=== PATIENT | male | born 1945 | race Caucasian/White ===

== ENCOUNTER 2017-03-09 15:47 | Inpatient (IN) | payer OTHER ==
[~2017-03-09] VITALS: Ht 160 cm; Wt 77.1 kg
[~2017-03-09 15:47] MED LIST: ASPIRIN EC81 MG; CRESTOR10 MG; ENALAPRIL MALEA20 MG; GLIMEPIRIDE2 MG; HEMATRON P.O.1 UDTAB; PHENYTOIN SODI100 MG; PREVACID30 MG
== END 2017-03-17 15:28 | disposition home or self-care (01) | DRG 203 ==
LOC: ER 15:47 → MEDJ 03-10 10:16 → SEC-K 03-10 10:16 → MEDJ 03-10 11:25
PROC: 3E0F7GC Introduction of Other Therapeutic Substance into Respiratory Tract, Via Natural or Artificial Opening (ICD-10-PCS; principal; 2017-03-10)
PROC: B246ZZZ Ultrasonography of Right and Left Heart (ICD-10-PCS; 2017-03-10)
PROC: 4A033R1 Measurement of Arterial Saturation, Peripheral, Percutaneous Approach (ICD-10-PCS; 2017-03-11)
PROC: BB24Y0Z Computerized Tomography (CT Scan) of Bilateral Lungs using Other Contrast, Unenhanced and Enhanced (ICD-10-PCS; 2017-03-11)
DX: J45.41 Moderate persistent asthma with (acute) exacerbation (principal); R09.02 Hypoxemia; I10 Essential (primary) hypertension; E11.9 Type 2 diabetes mellitus without complications

== ENCOUNTER 2017-07-31 09:25 | Outpatient (CLI) | payer OTHER | END 2017-07-31 09:27 | disposition home or self-care (01) | LOC: LAB 09:25 | DX: Z12.5 Encounter for screening for malignant neoplasm of prostate (principal); Z12.11 Encounter for screening for malignant neoplasm of colon; Z13.220 Encounter for screening for lipoid disorders; G47.8 Other sleep disorders; I10 Essential (primary) hypertension; E11.9 Type 2 diabetes mellitus without complications; H57.8 Other specified disorders of eye and adnexa; R05 Cough ==

== ENCOUNTER 2017-08-05 08:28 | Outpatient (CLI) | payer OTHER | END 2017-08-05 08:35 | disposition home or self-care (01) | LOC: LAB 08:28 | DX: G47.9 Sleep disorder, unspecified (principal); I10 Essential (primary) hypertension; H57.9 Unspecified disorder of eye and adnexa; R05 Cough; Z13.220 Encounter for screening for lipoid disorders; Z12.5 Encounter for screening for malignant neoplasm of prostate; Z12.11 Encounter for screening for malignant neoplasm of colon; E11.9 Type 2 diabetes mellitus without complications ==

== ENCOUNTER → 2017-08-19 | Outpatient (CLI) | payer OTHER | END | disposition home or self-care (01) | LOC: TOM 10:42 | DX: R97.20 Elevated prostate specific antigen [PSA] (principal); Z12.11 Encounter for screening for malignant neoplasm of colon; J84.10 Pulmonary fibrosis, unspecified ==

== ENCOUNTER 2022-02-07 12:11 | Emergency (ER) | payer OTHER ==
[~2022-02-07] VITALS: Ht 167.6 cm; Wt 70.3 kg
== END 2022-02-07 14:27 | disposition home or self-care (01) ==
LOC: ER 12:11
DX: J22 Unspecified acute lower respiratory infection (principal)

== ENCOUNTER 2024-08-09 16:35 | Inpatient (IN) | payer OTHER ==
[~2024-08-09] VITALS: Ht 165.1 cm; Wt 70.3 kg
[2024-08-09] MEDS ORDERED: FUROsemide 40 MG/4 ML VIAL IV ONE (17:15)
[2024-08-09] MEDS ORDERED: NITROGLYCERIN 250 ML IV SCH (17:15)
[2024-08-09] MEDS ORDERED: NITROGLYCERIN IN 5 % DEXTROSE 50 MG/250 ML BOTTLE IV ONE (17:18)
[2024-08-09] MEDS ORDERED: FUROsemide 40 MG/4 ML VIAL ONE (17:18)
[2024-08-09 17:21] LABS: BASO % 0.8 % (0.1-1.2); EOS # 0.17 (0.04-0.54); EOS % 2.6 % (0.7-7.0); LYMPH # 1.23 (1.18-3.74); LYMPH % 18.6 % (19.3-53.1); MEAN CORPUSCULAR HEMOGLOBIN 27.5 pg (25.6-32.2); MONO # 0.51 (0.24-0.82); MONO % 7.7 % (4.7-12.5); NEUT # 4.63 (1.56-6.13); NEUT % 70.1 % (34.0-71.1); PLATELET COUNT 246 K/uL (163-369); RED BLOOD COUNT 2.51 M/uL (4.63-6.08); RED CELL DISTRIBUTION WIDTH 15.6 % (11.6-14.4)
[2024-08-09 17:24] LABS: HEMOGLOBIN 6.9 g/dL (13.7-17.5)
[2024-08-09 17:44] LABS: COVID-19 AG NEGATIVE (NEGATIVE)
[2024-08-09 17:45] LABS: INR 1.71; PARTIAL THROMBOPLASTIN TIME 32.6 SECONDS (22.0-34.0)
[2024-08-09] MEDS ORDERED: FUROsemide 20 MG/2 ML VIAL IV SCH ×2 (17:45→21:00)
[2024-08-09 17:57] LABS: PROTHROMBIN TIME 17.9 SECONDS (9.0-11.5)
[2024-08-09 18:11] LABS: POTASSIUM 3.99 mEq/L (3.5-5.1)
[2024-08-09 18:13] LABS: ABG PH 7.481 (7.35-7.45); ABG PO2 108.6 mmHg (80-100); ABG pCO2 29.3 mmHg (35-45); BASE EXCESS -0.9 mmol/l; BICARBONATE 21.4 mmol/l (23-25); SaO2 98.6 %; Tco2 22.2 mmol/l
[2024-08-09 18:23] LABS: allen test SATISFACTORY; mode ROOM AIR; o2 21 %; puncture site RADIAL RIGHT
[2024-08-09 18:27] LABS: ALBUMIN 3.1 gm/dL (3.4-5.0); BILIRUBIN TOTAL 0.37 mg/dL (0.3-1.2); CALCIUM 8.5 mg/dL (8.5-10.1); CREATININE SERUM 0.95 mg/dL (0.70-1.30); GFR 76.48; GLOBULINA 3.6 G/DL (2.4-3.5); TOTAL PROTEIN 6.7 gm/dL (6.4-8.2)
[2024-08-09] MEDS ORDERED: IPRATROPIUM BROMIDE 0.5 MG/2.5 ML AMPUL.NEB IH SCH (18:48)
[2024-08-09] MEDS ORDERED: PANTOPRAZOLE SODIUM 40 MG/VIAL VIAL IV SCH (18:50)
[2024-08-09] MEDS ORDERED: DEXTROSE 50 % IN WATER 0.5 G/ML DISP.SYRIN IV PRN (19:00)
[2024-08-09] MEDS ORDERED: INSULIN LISPRO 1,000 UNIT/10 ML UNITS SUBCUTANEO PRN (19:00)
[2024-08-09] MEDS ORDERED: ACETAMINOPHEN 500 MG GEL..CAP PO PRN (19:00)
[2024-08-09 20:18] VITALS: BP 143/71; O2SAT 100
[2024-08-09 20:39] LABS: PH,URINE 5.5 (5.0-8.0); URINE APPEARANCE Clear; URINE BILIRRUBIN Negative (NEGATIVE); URINE BLOOD Negative; URINE COLOR Yellow; URINE GLUCOSE Negative (NEGATIVE); URINE KETONE Negative (NEGATIVE); URINE LEUKOCYTE Negative; URINE NITRATE Negative; URINE PROTEIN Negative (NEGATIVE); URINE UROBILINOGEN 0.2 E.U./dl
[2024-08-09 20:42] LABS: URINE BACTERIA 36.7 uL (0.0-1933); URINE EPITHELIAL CELLS 5.2 uL (0.0-38.8); URINE RBC 40.6 uL (0.0-20.8); URINE WBC 15.8 uL (0.0-23.2)
[2024-08-09 21:00] LABS: URINE CAST 0.29 uL (0.0-1.40); URINE YEAST FEW /hpf
[2024-08-09 22:06] LABS: FERRITIN 16.8 NG/ML (26-388)
[2024-08-09 22:24] VITALS: BP 179/95; O2SAT 100
[2024-08-09 23:48] VITALS: BP 164/92; O2SAT 100
[2024-08-10] VITALS (22 sets, daily range): BP systolic 106–154; BP diastolic 60–94; O2SAT 96–100
[2024-08-10] MEDS ORDERED: ROSUVASTATIN CALCIUM 10 MG TABLET PO SCH (09:00)
[2024-08-10] MEDS ORDERED: PHENYTOIN SODIUM EXTENDED 100 MG CAPSULE PO SCH (09:00)
[2024-08-11] VITALS (23 sets, daily range): BP systolic 113–160; BP diastolic 62–93; O2SAT 99–100
[2024-08-11] MEDS ORDERED: NITROGLYCERIN IN 5 % DEXTROSE 250 ML IV SCH (09:00)
[2024-08-11 17:20] LABS: BASO % 0.5 % (0.1-1.2); EOS # 0.28 (0.04-0.54); EOS % 3.4 % (0.7-7.0); HEMATOCRIT 35.3 % (40.1-51.0); HEMOGLOBIN 11.9 g/dL (13.7-17.5); LYMPH # 1.44 (1.18-3.74); LYMPH % 17.6 % (19.3-53.1); MEAN CORPUSCULAR HEMOGLOBIN 27.8 pg (25.6-32.2); MONO # 0.62 (0.24-0.82); MONO % 7.6 % (4.7-12.5); NEUT # 5.79 (1.56-6.13); NEUT % 70.7 % (34.0-71.1); PLATELET COUNT 241 K/uL (163-369); RED BLOOD COUNT 4.28 M/uL (4.63-6.08); RED CELL DISTRIBUTION WIDTH 15.9 % (11.6-14.4)
[2024-08-11 18:11] LABS: CHOL HDL RATIO 2.1 (0-5.0); TSH 1.78 uIU/mL (0.358-3.74)
[2024-08-12] VITALS (15 sets, daily range): BP systolic 121–151; BP diastolic 62–95; O2SAT 96–100
[2024-08-12 08:09] LABS: CALCIUM 8.3 mg/dL (8.5-10.1); CREATININE SERUM 0.99 mg/dL (0.70-1.30); GFR 72.92; PHOSPHOROUS 4.4 mg/dL (2.5-4.9); POTASSIUM 3.66 mEq/L (3.5-5.1)
[2024-08-12] MEDS ORDERED: AMLODIPINE BESYLATE 5 MG TABLET PO SCH (09:00)
[2024-08-12] MEDS ORDERED: LACTULOSE 20 G/30 ML BLIST.PACK PO SCH (12:00)
[2024-08-12] MEDS ORDERED: FUROsemide 20 MG TABLET PO NR (12:30)
[2024-08-12] MEDS ORDERED: PANTOPRAZOLE SODIUM 40 MG TABLET.DR PO SCH (13:26)
[2024-08-13] VITALS (9 sets, daily range): BP systolic 162–181; BP diastolic 79–93; O2SAT 90–99
[2024-08-13] MEDS ORDERED: FUROsemide 20 MG TABLET PO SCH (09:00)
== END 2024-08-13 20:43 | disposition home or self-care (01) | DRG 291 ==
LOC: ER 16:35 → ICU-2 19:22 → ICU 19:22 → MEDJ 08-12 22:57
PROVIDERS: General Practice; Internal Medicine Hematology & Oncology; ADMIT Specialist/Technologist, Other Nephrology; ATTEND Specialist/Technologist, Other Nephrology
PROC: BW24ZZZ Computerized Tomography (CT Scan) of Chest and Abdomen (ICD-10-PCS; principal; 2024-08-09)
PROC: B246ZZZ Ultrasonography of Right and Left Heart (ICD-10-PCS; 2024-08-09)
PROC: 3E0F7GC Introduction of Other Therapeutic Substance into Respiratory Tract, Via Natural or Artificial Opening (ICD-10-PCS; 2024-08-10)
PROC: 30233N1 Transfusion of Nonautologous Red Blood Cells into Peripheral Vein, Percutaneous Approach (ICD-10-PCS; 2024-08-10)
PROC: BW21ZZZ Computerized Tomography (CT Scan) of Abdomen and Pelvis (ICD-10-PCS; 2024-08-11)
PROC: 4A12X4Z Monitoring of Cardiac Electrical Activity, External Approach (ICD-10-PCS; 2024-08-13)
DX: I11.0 Hypertensive heart disease with heart failure (principal); I50.21 Acute systolic (congestive) heart failure; J90 Pleural effusion, not elsewhere classified; D64.9 Anemia, unspecified; E11.9 Type 2 diabetes mellitus without complications; Z79.4 Long term (current) use of insulin; D50.9 Iron deficiency anemia, unspecified; R09.02 Hypoxemia; Z79.01 Long term (current) use of anticoagulants; J22 Unspecified acute lower respiratory infection

== ENCOUNTER 2025-01-17 10:42 | Outpatient (CLI) | payer OTHER | END 2025-01-17 10:46 | disposition home or self-care (01) | LOC: TOM 10:42 | PROVIDERS: ATTEND Specialist | DX: R22.32 Localized swelling, mass and lump, left upper limb (principal); M25.812 Other specified joint disorders, left shoulder; M75.82 Other shoulder lesions, left shoulder; E11.9 Type 2 diabetes mellitus without complications; I10 Essential (primary) hypertension; I25.10 Atherosclerotic heart disease of native coronary artery without angina pectoris ==